=== PATIENT | female | born 1975 | race African-American/Black ===

== ENCOUNTER 2016-10-12 16:17 | Emergency (ER) | payer MEDICAID ==
--- NOTE | 2016-10-12 16:19 | ED Physician Chart ---
Chief Complaint/HPI - Patient Information Date Seen:: 10/12/16 Time Seen:: 16:19 Chief Complaint:: toe pain History of Present Illness:: 41-year-old female, otherwise healthy, complains of acute, constant, worse with weightbearing, nonradiating, aching, moderate, 6 out of 10 at worst, right great toe pain 2 days. Pain is located at the medial aspect of the distal toenail. Allergies:: Allergies Allergy/AdvReac Type Severity Reaction Status Date / Time MDX No Known Allergies - Nka Allergy Verified 02/20/15 18:28 [No Known Allergies - Nka] Historian:: Patient Review:: Nurse's Note Reviewed Review of Systems - Review of Systems Other: Complete system review otherwise unremarkable except as noted in HPI. Past Medical History - Past Medical History Past Medical History: No significant medical hx Family History: None Social History: Non Smoker, No Alcohol, No Drug Use, Lives With Parents Surgical History: None Psychiatricy History: None Medication: None Family Medical History - Family Member Mother History Unknown: Yes Ethnicity: Non- Living Status: Hx Family Hypertension: Yes Hx Family Diabetes: Yes Physical Exam - Physical Examination Other:: INITIAL VITAL SIGNS: Reviewed by me GENERAL: Alert and interactive. No acute distress HEAD: Head is normocephalic and atraumatic EYES: EOMI. . No scleral icterus. No conjunctival injection ENT: Moist mucous membranes. NECK: Supple. No masses. Full range of motion RESPIRATORY: No tachypnea. Clear breath sounds bilaterally. No wheezing, rales, or rhonchi CV: Regular rate and rhythm. No murmurs, rubs, or gallops ABDOMEN: Soft, non-distended, non-tender. No guarding. No rebound. No masses. EXTREMITIES: Right great toe at the medial aspect of the toenail it is obviously ingrown. There is no surrounding erythema. There is pain to palpation. There is good neurovascular status of the distal right lower extremity. SKIN: Warm and dry. No obvious rashes. NEUROLOGIC: Alert and oriented. Face is symmetric. Speech is normal. Moves all extremities equally. Motor and sensory distally intact. ED Septic Shock - . Is Septic Shock (SBP<90, OR Lactate>4 mmol\L) present?: No Reassessment (Disposition) - Reassessment Reassessment:: Patient has early ingrown toenail the right first toe. No sign of infection. We have offered to remove the toenail however patient has declined the procedure. She would rather just take ibuprofen. 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 Recommend follow-up with podiatry and primary care within 1-2 days. Gave prescription for ibuprofen. Return to ER precautions were given. Patient understands and agrees the plan. Reassessment Condition:: Improved - Diagnosis Diagnosis:: Right ingrown toenail, first toe Right lower extremity first toe pain - Aftercare/Follow up Instructions Aftercare/Follow-Up Instructions:: Counseled pt regarding lab results/diagnosis & need follow up, Refer to Discharge Instructions Medication Prescribed:: Ibuprofen - Patient Disposition Discharge/Transfer:: Home Time:: 16:45 Condition at Disposition:: Improved ED Discharge Plan - Patient Disposition Admit/Discharge/Transfer: PT DISCHARGED HOME Condition at Disposition: Improved Instructions: Ingrown Toenail
== END 2016-10-12 16:45 | disposition home or self-care (01) ==
LOC: ER 16:17
DX: L60.0 Ingrowing nail (principal)

== ENCOUNTER 2016-10-24 13:28 | Emergency (ER) | payer MEDICAID ==
--- NOTE | 2016-10-24 13:56 | ED Physician Chart ---
Chief Complaint/HPI - Patient Information Date Seen:: 10/24/16 Time Seen:: 13:50 Chief Complaint:: Cough for one week. History of Present Illness:: Pt has had cough with yellow sputum production for about one week. Pt at times vomits when her cough is severe. No dyspnea or fever. Last BM at about 10 am today, normal in color but slightly loose. No lightheadeness. Allergies:: Allergies Allergy/AdvReac Type Severity Reaction Status Date / Time No Known Allergies Allergy Verified 10/12/16 16:27 Vitals:: see Nurse Note. Historian:: Patient Family MD/PCP:: Dr. Alvarenga. LMP:: 09/29/16 Review:: Nurse's Note Reviewed Review of Systems - Review of Systems General/Constitutional: No fever, No chills, No weight loss, No weakness, No diaphoresis, No edema, No loss of appetite Skin: No skin lesions, No rash, No bruising Head: No headache, No light-headedness Eyes: No loss of vision, No pain, No diplopia ENT: No earache, No nasal drainage, No sore throat, No tinnitus Neck: No neck pain, No swelling, No thyromegaly, No stiffness, No mass noted Cardio Vascular: No chest pain, No palpitations, No PND, No orthopnea, No edema Pulmonary: No SOB, Cough, Sputum (yellow), No wheezing GI: Nausea, Vomiting (with severe cough. Vomitus consists of gastric content. 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 Surgical History: (about 20 years ago.) Psychiatricy History: None Medication: Reviewed Family Medical History - Family Member Mother History Unknown: Yes Ethnicity: Non- Living Status: Hx Family Hypertension: Yes Hx Family Diabetes: Yes Labs/Radiology/EKG Results - Lab Results Results: Laboratory Tests 10/24/16 10/24/16 14:17 14:17 WBC 5.8 D RBC 4.69 Hgb 13.1 Hct 40.0 MCV 85.4 MCH 28.0 MCHC Differential 32.8 RDW 12.3 Plt Count 180 MPV 8.3 Neutrophils (Manual) 53 Lymphocytes 26 Monocytes 15 H Eosinophils 4 Basophils 2 Platelet Estimate ADEQUATE Platelet Morphology GIANT PLATELETS SEEN RBC Morph Micro Appear NORMAL Sodium 135 L Potassium 3.5 Chloride 100 Carbon Dioxide 28.2 Anion Gap 10.3 BUN 26 H Creatinine 1.7 H Est GFR ( Amer) 42.6 Est GFR (Non-Af Amer) 35.2 BUN/Creatinine Ratio 15.3 Glucose 97 Calcium 10.0 ED Septic Shock - . Is Septic Shock (SBP<90, OR Lactate>4 mmol\L) present?: No Reassessment (Disposition) - Reassessment Reassessment:: 1530 Pt has been repeatedly evaluated. Pt's cough has much subsided after HHN treatment with albuterol. Lab results just became available. Lab findings have been reviewed with pt. Pt requests to go [facility] now and does not want further observation/management in hospital. Aftercare instructions given. Reassessment Condition:: Improved - Diagnosis Diagnosis:: Acute bronchitis, stable. Chronic renal insufficiency, stable. HTN, stable. - Aftercare/Follow up Instructions Aftercare/Follow-Up Instructions:: Refer to Discharge Instructions Notes:: Continue present care. Clear liquid for today. F/U with PCP Dr. Alvarenga in one day for recheck with repeat lab study: BMP. Return to ER immediately if condition worsens or if any further questions/ problems. Medication Prescribed:: Zithromax 250 mg tab 2 tabs po for one dose today, then one tab po daily Day 2 to 5. D-6 R-0 Albuterol inhaler 2 puffs q6h prn for severe cough. D-one canister R-0 - Patient Disposition Discharge/Transfer:: Home Time:: 15:35 Condition at Disposition:: Stable, Improved
[2016-10-24] MEDS ORDERED: Albuterol Nebulizer 2.5mg/3mL HHN ONE ×2 (14:02→14:11)
[2016-10-24 14:34] LABS: HEMOGLOBIN 13.1 gm/dL (11.7-15.5); MEAN CELL VOLUME 85.4 fl (81-100); MEAN CORPUSCULAR HGB CONC 32.8 pg (28.0-36.0); MEAN PLATELET VOLUME 8.3 fl; PLATELET COUNT 180 Th/cmm (150-400); RED BLOOD COUNT 4.69 Mil/cmm (3.80-5.10); RED CELL DISTRIBUTION WIDTH 12.3 % (11.5-20.0)
[2016-10-24 14:37] LABS: WHITE BLOOD COUNT 5.8 Th/cmm (4.8-10.8)
[2016-10-24 14:42] LABS: ANION GAP 10.3 (7.0-16.0); BUN/CREATININE RATIO 15.3; CARBON DIOXIDE 28.2 mEq/L (21.0-31.0); CREATININE - SERUM 1.7 mg/dL (0.6-1.2); POTASSIUM SERUM 3.5 mEq/L (3.5-5.1)
[2016-10-24 15:04] LABS: BASOPHIL 2 % (0-3); EOSINOPHIL 4 % (0-5); NEUTROPHILS 53 % (40-80); PLATELET ESTIMATE ADEQUATE (NORMAL); PLATELET MORPHOLOGY GIANT PLATELETS SEEN (NORMAL); TOTAL CELLS COUNTED 100
== END 2016-10-24 15:50 | disposition home or self-care (01) ==
LOC: ER 13:28
DX: J20.9 Acute bronchitis, unspecified (principal); I12.9 Hypertensive chronic kidney disease with stage 1 through stage 4 chronic kidney disease, or unspecified chronic kidney disease; N18.9 Chronic kidney disease, unspecified
CPT/HCPCS: 99284; 96374; 94640; 36415; 85007; 85027; 80048; J2405; J7613; Z7502

== ENCOUNTER 2017-07-26 11:43 | Emergency (ER) | payer MEDICAID ==
--- NOTE | 2017-07-26 12:10 | ED Physician Chart ---
ED Chief Complaint/HPI - Patient Information Date Seen:: 07/26/17 Time Seen:: 11:55 Chief Complaint:: Sore Throat History of Present Illness:: onset x one day of S/T, fever, cough, dizziness, and congestion; pt denies trauma, H/As, neck pain, C/P, SOB, Abd. 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 Allergies:: Allergies Allergy/AdvReac Type Severity Reaction Status Date / Time No Known Allergies Allergy Verified 10/24/16 14:07 Vitals:: Vital Signs - 8 hr 07/26/17 11:53 Temp 99.4 F HR 68 RR 17 BP 106/62 O2 Sat % 98 Historian:: Patient Review:: Nurse's Note Reviewed ED Review of Systems - Review of Systems General/Constitutional: No fever, No chills, No weight loss, No weakness, No diaphoresis, No edema, No loss of appetite Skin: No skin lesions, No rash, No bruising Head: No headache, No light-headedness Eyes: No loss of vision, No pain, No diplopia ENT: No earache, Nasal drainage, Sore throat, No tinnitus Neck: No neck pain, No swelling, No thyromegaly, No stiffness, No mass noted Cardio Vascular: No chest pain, No palpitations, No PND, No orthopnea, No edema Pulmonary: No SOB, Cough, No sputum, No wheezing GI: No nausea, No vomiting, No diarrhea, No pain, No melena, No hematochezia, No constipation, No hematemesis G/U: No dysuria, No frequency, No hematuria, No nacturia [employer]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, No abnormal vaginal bleed, No contraction Musculoskeletal: No bone or joint pain, No back pain, No muscle pain Endocrine: No polyuria, No polydipsia Psychiatric: Prior psych history, Depression, No anxiety, No suicidal ideation, No homicidal ideation, No auditory hallucination, No visual hallucination Hematopoietic: No bruising, No lymphadenopathy Allergic/Immuno: No urticaria, No angioedema Neurological: No syncope, No focal symptoms, No weakness, No paresthesia, No headache, No seizure, Dizziness, No confusion, No vertigo ED Past Medical History - Past Medical History Obtainable: Yes Past Medical History: HTN Family History: HTN Social History: Non Smoker, No Alcohol, No Drug Use, Single, Employed Surgical History: None Psychiatricy History: Depression Medication: Reviewed Family Medical History - Family Member Mother History Unknown: Yes Ethnicity: Non- Living Status: Hx Family Hypertension: Yes Hx Family Diabetes: Yes Uncle History Unknown: Yes Hx Family Cancer: No Hx Family Coronary Artery Disease: No Hx Family Congestive Heart Failure: No Hx Family Hypertension: Yes Hx Family Stroke: No Hx Family Diabetes: Yes Hx Family Seizures: No Hx Family Dementia: No Hx Family AIDS: No Hx Family HIV: No Hx Family COPD: No Hx Family Hepatitis: No Hx Family Psychiatric Problems: No Hx Family Tuberculosis: No ED Physical Exam - Physical Examination General/Constitutional: Awake, Well-developed, well-nourished, Alert, No distress, GCS 15, Non-toxic appearing, Ambulatory Head: Atraumatic Eyes: Lids, conjuctiva normal, PERRL, EOMI Skin: Nl inspection, No rash, No skin lesions, No ecchymosis, Well hydrated, No lymphadenopathy ENMT: External ears, nose nl, TM canals nl, Nasal exam nl, Lips, teeth, gums nl , Tonsils nl Other ENMT comments:: Pharynx: Injected; no exudates; no abscesses; no FBs; no airway obstruction; + Nasal Congestion Neck: Nontender, Full ROM w/o pain, No JVD, No nuchal rigidity, No bruit, No mass, No stridor Other Neck comments:: Supple; no meningeal signs; no cervical tenderness; no bruits Respiratory: Nl effort/Exclusion, Clear to Auscultation, No Wheeze/Rhonchi/Rales Cardio Vascular: RRR, No murmur, gallop, rubs, NL S1 S2, Carotid/Femoral/Distal pulses equal bilaterally GI: No tenderness/rebounding/guarding, No organomegaly, No hernia, Normal BS's, Nondistended, No mass/bruits, No McBurney tenderness : No CVA tenderness Extremities: No tenderness or effusion, Full ROM, normal strength in all extremities, No edema, Normal digits & nails Neuro/Psych: Alert/oriented, DTR's symmetric, Normal sensory exam, Normal motor strength, Judgement/insight normal, Mood normal, Normal gait, No focal deficits Misc: Normal back, No paraspinal tenderness ED Septic Shock - . Is Septic Shock (SBP<90, OR Lactate>4 mmol\L) present?: No - <6hrs of presentation: Vital Signs: Vital Signs - 8 hr 07/26/17 11:53 Temp 99.4 F HR 68 RR 17 BP 106/62 O2 Sat % 98 ED Reassessment (Disposition) - Reassessment Reassessment:: pt tolerated po fluids well in ER; pt is asymptomatic upon discharge Reassessment Condition:: Improved - Diagnosis Diagnosis:: Dx: Sore Throat; Pharyngitis; Cough; Congestion; Sinusitis; Bronchitis; Dizziness; Labyrinthritis; Benign Vertigo; Fever; URI - Aftercare/Follow up Instructions Aftercare/Follow-Up Instructions:: Counseled pt regarding lab results/diagnosis & need follow up, Refer to Discharge Instructions, Counseled pt & family regarding lab results/diagnosis & need follow up Medication Prescribed:: Rx: Amoxicillin 500mg po tid x 10 days; Salt Water Gargles; Cool Mist Vaporizer ; Tylenol 500mg po qid prn fever; take medications as prescibed; Have Blood Pressure re-checked in one day; HTN Care Instructions - Patient Disposition Discharge/Transfer:: Home Condition at Disposition:: Stable, Improved (RTER prn if existing s/s reoccur and/or get worse and/or any other new s/s occur; ACIs given for all above Dx; Refer to ENT Specialist/Neurologist/Psychiatrist/Supervisor [employer] SHIREEN; F/U with PMD in one day or prn; RTER prn if concerned) ED Discharge Plan - Patient Disposition Prescriptions: Amoxicillin [Amoxicillin*] 500 mg PO TID #30 tab
== END 2017-07-26 12:16 ==
LOC: ER 11:43
DX: J02.9 Acute pharyngitis, unspecified (principal); J06.9 Acute upper respiratory infection, unspecified; J32.9 Chronic sinusitis, unspecified; J20.9 Acute bronchitis, unspecified; R42 Dizziness and giddiness; H81.10 Benign paroxysmal vertigo, unspecified ear; H83.09 Labyrinthitis, unspecified ear; I10 Essential (primary) hypertension
CPT/HCPCS: Z7502

== ENCOUNTER 2017-09-15 13:37 | Emergency (ER) | payer MEDICAID ==
--- NOTE | 2017-09-15 14:33 | ED Physician Chart ---
ED Chief Complaint/HPI - Patient Information Date Seen:: 09/15/17 Time Seen:: 14:15 Chief Complaint:: sore throat and cough History of Present Illness:: Patient's had a sore throat and cough last 2-3 weeks increase the last 5 days. She did not take her temperature. No vomiting or diarrhea. Patient did not receive influenza vaccination this season. Allergies:: Allergies Allergy/AdvReac Type Severity Reaction Status Date / Time No Known Allergies Allergy Verified 09/15/17 14:24 Vitals:: Vital Signs - 8 hr 09/15/17 14:20 Temp 99.2 F HR 64 RR 16 BP 169/72 O2 Sat % 96 Historian:: Patient Review:: Nurse's Note Reviewed ED Review of Systems - Review of Systems General/Constitutional: No weight loss, No diaphoresis Skin: No skin lesions Head: No headache Eyes: No loss of vision ENT: No earache, Sore throat Neck: No neck pain Cardio Vascular: No chest pain Pulmonary: Cough GI: No nausea, No vomiting, No diarrhea G/U: No dysuria Endocrine: No polyuria, No polydipsia Psychiatric: No prior psych history Hematopoietic: No bruising Allergic/Immuno: No urticaria Neurological: No syncope, No focal symptoms ED Past Medical History - Past Medical History Past Medical History: No significant medical hx Family History: None Social History: Non Smoker, No Alcohol Surgical History: other (heart valve surgery shortly after ) Psychiatricy History: None Family Medical History - Family Member Mother History Unknown: Yes Ethnicity: Non- Living Status: Hx Family Hypertension: Yes Hx Family Diabetes: Yes Uncle History Unknown: Yes Hx Family Cancer: No Hx Family Coronary Artery Disease: No Hx Family Congestive Heart Failure: No Hx Family Hypertension: Yes Hx Family Stroke: No Hx Family Diabetes: Yes Hx Family Seizures: No Hx Family Dementia: No Hx Family AIDS: No Hx Family HIV: No Hx Family COPD: No Hx Family Hepatitis: No Hx Family Psychiatric Problems: No Hx Family Tuberculosis: No ED Physical Exam - Physical Examination General/Constitutional: Well-developed, well-nourished, Alert, No distress Head: Atraumatic Eyes: Lids, conjuctiva normal, PERRL Skin: Nl inspection, No rash, No skin lesions, No ecchymosis ENMT: External ears, nose nl, TM canals nl, Nasal exam nl, Lips, teeth, gums nl , Oropharynx nl, Tonsils nl Neck: No nuchal rigidity Respiratory: Nl effort/Exclusion, Clear to Auscultation Cardio Vascular: RRR Other Cardio Vascular comments:: 3/6 systolic murmur GI: No tenderness/rebounding/guarding : No CVA tenderness Extremities: Normal digits & nails Neuro/Psych: Alert/oriented Misc: Normal back ED Septic Shock - . Is Septic Shock (SBP<90, OR Lactate>4 mmol\L) present?: No - <6hrs of presentation: Vital Signs: Vital Signs - 8 hr 09/15/17 14:20 Temp 99.2 F HR 64 RR 16 BP 169/72 O2 Sat % 96 ED Reassessment (Disposition) - Reassessment Reassessment Condition:: Unchanged - Diagnosis Diagnosis:: Viral syndrome; bronchitis - Aftercare/Follow up Instructions Aftercare/Follow-Up Instructions:: Refer to Discharge Instructions Medication Prescribed:: Z-Jona to take per directions - Patient Disposition Discharge/Transfer:: Home Condition at Disposition:: Stable
== END 2017-09-15 14:40 | disposition home or self-care (01) ==
LOC: ER 13:37
DX: B34.9 Viral infection, unspecified (principal); J20.8 Acute bronchitis due to other specified organisms
CPT/HCPCS: Z7502

== ENCOUNTER 2017-10-03 13:51 | Emergency (ER) | payer MEDICAID ==
[2017-10-03 17:21] LABS: % EOSINOPHILS 0.7 % (0.0-5.0); % LYMPHOCYTES 17.6 % (20.0-50.0); % MONOCYTES 8.5 % (2.0-10.0); % NEUTROPHILS 73.2 % (40.0-80.0); EOSINOPHILE ABSOLUTE 0.1 Th/cmm (0.1-0.4); HEMOGLOBIN 11.8 gm/dL (12-16); LYMPHOCYTE ABSOLUTE 1.6 Th/cmm (1.5-3.0); MEAN CELL VOLUME 85.5 fl (81-100); MEAN CORPUSCULAR HEMOGLOBIN 28.9 pg (27.0-31.0); MEAN CORPUSCULAR HGB CONC 33.8 pg (28.0-36.0); MEAN PLATELET VOLUME 8.2 fl; MONOCYTE ABSOLUTE 0.8 Th/cmm (0.3-1.0); NEUTROPHILE ABSOLUTE 6.5 Th/cmm (1.8-8.0); PLATELET COUNT 175 Th/cmm (150-400); RED BLOOD COUNT 4.09 Mil/cmm (3.80-5.10)
[2017-10-03 17:50] LABS: ALB/GLOB RATIO 1.2 (1.0-1.8); ALBUMIN 4.1 gm/dL (3.7-5.3); ANION GAP 10.5 (7.0-16.0); BILIRUBIN,TOTAL 0.5 mg/dL (0.3-1.0); CALCIUM SERUM 9.6 mg/dL (8.6-10.3); CARBON DIOXIDE 29.1 mEq/L (21.0-31.0); CREATININE - SERUM 1.4 mg/dL (0.6-1.2); GFR NON AFRICAN-AMERICAN 43.8 ml/min; POTASSIUM SERUM 3.6 mEq/L (3.5-5.1); TOTAL PROTEIN,SERUM 7.5 gm/dL (6.0-8.3)
--- NOTE | 2017-10-03 18:42 | Transfer Summary ---
DATE OF TRANSFER: HISTORY: I just got the lab results on the patient at the bed 5. She came with pain in the right great toe. Clinical diagnosis was an acute gout and we got the uric acid level, which is elevated to 10.2. I gave her Ultram. I gave her Protonix and gave her Solu-Medrol. Her pain is almost gone. I think she has gout and she should go home. She should be on Zyloprim 300 mg once a day and Indocin 20. Motrin she can take a 400 mg twice a day for 2 to 3 days and once the pain is ruled over, then she can stop taking Motrin, which is [id number]. FINAL DIAGNOSIS: Acute gouty arthritis, got better with the use of Ultram and Solu-Medrol. JOB# [id number]
--- NOTE | 2017-10-04 09:00 | Diagnostic Imaging Report ---
Exam: Right great toe. HISTORY: Arthritis Findings: Multiple views of right great toe reviewed the study demonstrates no evidence of fracture dislocation. Mild subcutaneous soft tissue swelling is noted in the proximal phalanx right great toe IMPRESSION: Normal examination right great toe.
== END 2017-10-03 19:00 | disposition home or self-care (01) ==
LOC: ER 13:51
DX: M10.9 Gout, unspecified (principal)
CPT/HCPCS: 99285; 96374; 96375; 73660; 83880; 36415; 86141; 85025; 80053; 84550; C9113; J2930

== ENCOUNTER 2017-12-12 14:53 | Emergency (ER) | payer MEDICAID ==
--- NOTE | 2017-12-12 15:13 | ED Physician Chart ---
ED Chief Complaint/HPI - Patient Information Date Seen:: 12/12/17 Time Seen:: 14:50 Chief Complaint:: Abdominal Pain History of Present Illness:: onset x one week of intermittent, diffuse, crampy abdominal pain, N/V/D x 10; S/ T, and fever; pt denies trauma, H/As, E/As, neck pain, cough, C/P, SOB, A/C, chills, or urinary s/s Allergies:: Allergies Allergy/AdvReac Type Severity Reaction Status Date / Time No Known Allergies Allergy Verified 09/15/17 14:24 Historian:: Patient Review:: Nurse's Note Reviewed <Abhishek Beauchamp - Last Filed: 12/12/17 19:48> - Patient Information Allergies:: Allergies Allergy/AdvReac Type Severity Reaction Status Date / Time No Known Allergies Allergy Verified 09/15/17 14:24 Vitals:: Vital Signs - 8 hr 12/12/17 15:22 Temp 99.7 F HR 69 RR 19 BP 145/64 O2 Sat % 97 <Tee Valle - Last Filed: 12/12/17 22:41> ED Review of Systems - Review of Systems General/Constitutional: Fever, No chills, No weight loss, No weakness, No diaphoresis, No edema, No loss of appetite Skin: No skin lesions, No rash, No bruising Head: No headache, No light-headedness Eyes: No loss of vision, No pain, No diplopia ENT: No earache, No nasal drainage, Sore throat, No tinnitus Neck: No neck pain, No swelling, No thyromegaly, No stiffness, No mass noted Cardio Vascular: No chest pain, No palpitations, No PND, No orthopnea, No edema Pulmonary: No SOB, Cough, No sputum, No wheezing GI: Nausea, Vomiting, Diarrhea, Pain, No melena, No hematochezia, No constipation, No hematemesis G/U: No dysuria, No frequency, No hematuria, No nacturia Phlebotomy Technician: No vaginal discharge, No abnormal vaginal bleed, No contraction Musculoskeletal: No bone or joint pain, No back pain, No muscle pain Endocrine: No polyuria, No polydipsia Psychiatric: Prior psych history, Depression, No anxiety, No suicidal ideation, No homicidal ideation, No auditory hallucination, No visual hallucination Hematopoietic: No bruising, No lymphadenopathy Allergic/Immuno: No urticaria, No angioedema Neurological: No syncope, No focal symptoms, No weakness, No paresthesia, No headache, No seizure, No dizziness, No confusion, No vertigo <Abhishek Beauchamp Filed: 12/12/17 19:48> ED Past Medical History - Past Medical History Obtainable: Yes Past Medical History: HTN Family History: HTN Social History: Non Smoker, No Alcohol, No Drug Use, Single Surgical History: None Psychiatricy History: Depression Medication: Reviewed <Abhishek Beauchamp Last Filed: 12/12/17 19:48> Family Medical History - Family Member Mother History Unknown: Yes Ethnicity: Non- Living Status: Hx Family Hypertension: Yes Hx Family Diabetes: Yes Uncle History Unknown: Yes Ethnicity: Hx Family Cancer: No Hx Family Coronary Artery Disease: No Hx Family Congestive Heart Failure: No Hx Family Hypertension: Yes Hx Family Stroke: No Hx Family Diabetes: Yes Hx Family Seizures: No Hx Family Dementia: No Hx Family AIDS: No Hx Family HIV: No Hx Family COPD: No Hx Family Hepatitis: No Hx Family Psychiatric Problems: No Hx Family Tuberculosis: No <Abhishek Beauchamp Filed: 12/12/17 19:48> ED Physical Exam - Physical Examination General/Constitutional: Awake, Well-developed, well-nourished, Alert, No distress, GCS 15, Non-toxic appearing, Ambulatory Head: Atraumatic Eyes: Lids, conjuctiva normal, PERRL, EOMI Skin: Nl inspection, No rash, No skin lesions, No ecchymosis, Well hydrated, No lymphadenopathy ENMT: External ears, nose nl, TM canals nl, Nasal exam nl, Lips, teeth, gums nl , Tonsils nl Other ENMT comments:: Pharynx: Injected Neck: Nontender, Full ROM w/o pain, No JVD, No nuchal rigidity, No bruit, No mass, No stridor Other Neck comments:: supple; no meningeal signs; no cervical tenderness Respiratory: Nl effort/Exclusion, Clear to Auscultation, No Wheeze/Rhonchi/Rales Cardio Vascular: RRR, No murmur, gallop, rubs, NL S1 S2, Carotid/Femoral/Distal pulses equal bilaterally GI: No tenderness/rebounding/guarding, No organomegaly, No hernia, Normal BS's, Nondistended, No mass/bruits, No McBurney tenderness, Rectum exam nl Other GI comments:: no pulsatile masses : No CVA tenderness Extremities: No tenderness or effusion, Full ROM, normal strength in all extremities, No edema, Normal digits & nails Neuro/Psych: Alert/oriented, DTR's symmetric, Normal sensory exam, Normal motor strength, Judgement/insight normal, Mood normal, Normal gait, No focal deficits Misc: Normal back, No paraspinal tenderness <Abhishek Beauchamp - Last Filed: 12/12/17 19:48> ED Labs/Radiology/EKG Results - Lab Results Comments:: Amylase: 109; K+: 3.4; BUN: 32; Cr: 1.3 <Abhishek Beauchamp - Last Filed: 12/12/17 19:48> - Lab Results Results: Laboratory Tests 12/12/17 12/12/17 12/12/17 15:30 15:30 15:30 WBC 7.8 RBC 4.24 Hgb 12.0 Hct 36.8 L MCV 86.8 MCH 28.3 MCHC Differential 32.6 RDW 12.8 Plt Count 216 MPV 8.0 Neutrophils % 67.8 Lymphocytes % 21.8 Monocytes % 7.9 Eosinophils % 2.5 Basophils % 0.0 PT INR PTT (Actin FS) Sodium 136 Potassium 3.4 L Chloride 100 Carbon Dioxide 26.7 Anion Gap 12.7 BUN 32 H Creatinine 1.3 H Est GFR ( Amer) 57.8 Est GFR (Non-Af Amer) 47.7 BUN/Creatinine Ratio 24.6 Glucose 94 Whole Bld Lactic Acid Calcium 9.6 Total Bilirubin 0.4 AST 18 ALT 13 Alkaline Phosphatase 82 Creatine Kinase 100 Troponin I B-Natriuretic Peptide 79.6 Total Protein 7.3 Albumin 3.8 Globulin 3.5 Albumin/Globulin Ratio 1.1 Triglycerides 140 Cholesterol 151 LDL Cholesterol Direct 88 HDL Cholesterol 40 Amylase 109 H Lipase 81 Serum , Qual Urine Source Urine Color Urine Clarity Urine pH Ur Specific [place] Urine Protein Urine Glucose (UA) Urine Ketones Urine Blood Urine Nitrate Urine Bilirubin Urine Urobilinogen Ur Leukocyte Esterase Urine RBC Urine WBC Ur Epithelial Cells Urine Bacteria 12/12/17 12/12/1712/12/18 15:30 15:30 15:30 WBC RBC Hgb Hct MCV MCH MCHC Differential RDW Plt Count MPV Neutrophils % Lymphocytes % Monocytes % Eosinophils % Basophils % PT 10.5 INR 1.01 PTT (Actin FS) 25.9 L Sodium Potassium Chloride Carbon Dioxide Anion Gap BUN Creatinine Est GFR ( Amer) Est GFR (Non-Af Amer) BUN/Creatinine Ratio Glucose Whole Bld Lactic Acid Calcium Total Bilirubin AST ALT Alkaline Phosphatase Creatine Kinase Troponin I 0.01 B-Natriuretic Peptide Total Protein Albumin Globulin Albumin/Globulin Ratio Triglycerides Cholesterol LDL Cholesterol Direct HDL Cholesterol Amylase Lipase Serum , Qual NEGATIVE Urine Source Urine Color Urine Clarity Urine pH Ur Specific [place] Urine Protein Urine Glucose (UA) Urine Ketones Urine Blood Urine Nitrate Urine Bilirubin Urine Urobilinogen Ur Leukocyte Esterase Urine RBC Urine WBC Ur Epithelial Cells Urine Bacteria 12/12/17 12/12/17 15:30 16:40 WBC RBC Hgb Hct MCV MCH MCHC Differential RDW Plt Count MPV Neutrophils % Lymphocytes % Monocytes % Eosinophils % Basophils % PT INR PTT (Actin FS) Sodium Potassium Chloride Carbon Dioxide Anion Gap BUN Creatinine Est GFR ( Amer) Est GFR (Non-Af Amer) BUN/Creatinine Ratio Glucose Whole Bld Lactic Acid 0.63 Calcium Total Bilirubin AST ALT Alkaline Phosphatase Creatine Kinase Troponin I B-Natriuretic Peptide Total Protein Albumin Globulin Albumin/Globulin Ratio Triglycerides Cholesterol LDL Cholesterol Direct HDL Cholesterol Amylase Lipase Serum , Qual Urine Source [place] Urine Color YELLOW Urine Clarity CLEAR Urine pH 5.5 Ur Specific [place] >= 1.030 Urine Protein NEGATIVE Urine Glucose (UA) NEGATIVE Urine Ketones NEGATIVE Urine Blood NEGATIVE Urine Nitrate NEGATIVE Urine Bilirubin NEGATIVE Urine Urobilinogen 0.2 Ur Leukocyte Esterase NEGATIVE Urine RBC 0-2 Urine WBC 0-2 Ur Epithelial Cells RARE Urine Bacteria NONE SEEN Comments:: Laboratory Results - last 24 hr 12/12/17 12/12/17 12/12/17 15:30 15:30 15:30 WBC 7.8 RBC 4.24 Hgb 12.0 Hct 36.8 L MCV 86.8 MCH 28.3 MCHC Differential 32.6 RDW 12.8 Plt Count 216 MPV 8.0 Neutrophils % 67.8 Lymphocytes % 21.8 Monocytes % 7.9 Eosinophils % 2.5 Basophils % 0.0 PT INR PTT (Actin FS) Sodium 136 Potassium 3.4 L Chloride 100 Carbon Dioxide 26.7 Anion Gap 12.7 BUN 32 H Creatinine 1.3 H Est GFR ( Amer) 57.8 Est GFR (Non-Af Amer) 47.7 BUN/Creatinine Ratio 24.6 Glucose 94 Whole Bld Lactic Acid Calcium 9.6 Total Bilirubin 0.4 AST 18 ALT 13 Alkaline Phosphatase 82 Creatine Kinase 100 Troponin I B-Natriuretic Peptide 79.6 Total Protein 7.3 Albumin 3.8 Globulin 3.5 Albumin/Globulin Ratio 1.1 Triglycerides 140 Cholesterol 151 LDL Cholesterol Direct 88 HDL Cholesterol 40 Amylase 109 H Lipase 81 Serum , Qual Urine Source Urine Color Urine Clarity Urine pH Ur Specific [place] Urine Protein Urine Glucose (UA) Urine Ketones Urine Blood Urine Nitrate Urine Bilirubin Urine Urobilinogen Ur Leukocyte Esterase Urine RBC Urine WBC Ur Epithelial Cells Urine Bacteria 12/12/17 12/12/17 12/12/17 15:30 15:30 15:30 WBC RBC Hgb Hct MCV MCH MCHC Differential RDW Plt Count MPV Neutrophils % Lymphocytes % Monocytes % Eosinophils % Basophils % PT 10.5 INR 1.01 PTT (Actin FS) 25.9 L Sodium Potassium Chloride Carbon Dioxide Anion Gap BUN Creatinine Est GFR ( Amer) Est GFR (Non-Af Amer) BUN/Creatinine Ratio Glucose Whole Bld Lactic Acid Calcium Total Bilirubin AST ALT Alkaline Phosphatase Creatine Kinase Troponin I 0.01 B-Natriuretic Peptide Total Protein Albumin Globulin Albumin/Globulin Ratio Triglycerides Cholesterol LDL Cholesterol Direct HDL Cholesterol Amylase Lipase Serum , Qual NEGATIVE Urine Source Urine Color Urine Clarity Urine pH Ur Specific [place] Urine Protein Urine Glucose (UA) Urine Ketones Urine Blood Urine Nitrate Urine Bilirubin Urine Urobilinogen Ur Leukocyte Esterase Urine RBC Urine WBC Ur Epithelial Cells Urine Bacteria 12/12/17 12/12/17 15:30 16:40 WBC RBC Hgb Hct MCV MCH MCHC Differential RDW Plt Count MPV Neutrophils % Lymphocytes % Monocytes % Eosinophils % Basophils % PT INR PTT (Actin FS) Sodium Potassium Chloride Carbon Dioxide Anion Gap BUN Creatinine Est GFR ( Amer) Est GFR (Non-Af Amer) BUN/Creatinine Ratio Glucose Whole Bld Lactic Acid 0.63 Calcium Total Bilirubin AST ALT Alkaline Phosphatase Creatine Kinase Troponin I B-Natriuretic Peptide Total Protein Albumin Globulin Albumin/Globulin Ratio Triglycerides Cholesterol LDL Cholesterol Direct HDL Cholesterol Amylase Lipase Serum , Qual Urine Source [place] Urine Color YELLOW Urine Clarity CLEAR Urine pH 5.5 Ur Specific [place] >= 1.030 Urine Protein NEGATIVE Urine Glucose (UA) NEGATIVE Urine Ketones NEGATIVE Urine Blood NEGATIVE Urine Nitrate NEGATIVE Urine Bilirubin NEGATIVE Urine Urobilinogen 0.2 Ur Leukocyte Esterase NEGATIVE Urine RBC 0-2 Urine WBC 0-2 Ur Epithelial Cells RARE Urine Bacteria NONE SEEN <Tee Valle - Last Filed: 12/12/17 22:41> ED Assessment - Assessment General Assessment: This afternoon patient developed upper abdominal pain should objective fever and had 4 times diarrhea. No vomiting. Patient has no chronic medical problems. No prior surgery. Patient's well-developed well-nourished no acute distress. Chest clear. Heart RR no murmur or extra sound. Abdomen bowel sounds present abdomen is soft, nontender, no organomegaly. At 2235 patient denied abdominal pain. Abdomen was soft and nontender. The diagnosis is viral enteritis with diarrhea. <Tee Valle - Last Filed: 12/12/17 22:41> ED Septic Shock - . Is Septic Shock (SBP<90, OR Lactate>4 mmol\L) present?: No <Abhishek Beauchamp - Last Filed: 12/12/17 19:48> - <6hrs of presentation: Vital Signs: Vital Signs - 8 hr 12/12/17 15:22 Temp 99.7 F HR 69 RR 19 BP 145/64 O2 Sat % 97 <Tee Valle - Last Filed: 12/12/17 22:41> ED Reassessment (Disposition) - Reassessment Reassessment Condition:: Improved - Diagnosis Diagnosis:: Dx: Fever; Pharyngitis; N/V/D; Abdominal Pain; Hypokalemia; Dehydration; Pancreatitis <Abhishek Beauchamp - Last Filed: 12/12/17 19:48> - Reassessment Reassessment Condition:: Improved - Aftercare/Follow up Instructions Aftercare/Follow-Up Instructions:: Refer to Discharge Instructions - Patient Disposition Discharge/Transfer:: Home Condition at Disposition:: Stable, Improved <Tee Valle - Last Filed: 12/12/17 22:41>
[2017-12-12] MEDS ORDERED: Sodium Chloride 0.9% 1,000 ML IV ONE (15:15)
[2017-12-12] MEDS ORDERED: cefTRIAXone 1 GM in Sodium Chloride 0.9% 50 ML IV ONE (15:17)
[2017-12-12 15:45] LABS: % EOSINOPHILS 2.5 % (0.0-5.0); % LYMPHOCYTES 21.8 % (20.0-50.0); % MONOCYTES 7.9 % (2.0-10.0); % NEUTROPHILS 67.8 % (40.0-80.0); EOSINOPHILE ABSOLUTE 0.2 Th/cmm (0.1-0.4); HEMATOCRIT 36.8 % (41.0-60); LYMPHOCYTE ABSOLUTE 1.7 Th/cmm (1.5-3.0); MEAN CELL VOLUME 86.8 fl (81-100); MEAN CORPUSCULAR HEMOGLOBIN 28.3 pg (27.0-31.0); MEAN CORPUSCULAR HGB CONC 32.6 pg (28.0-36.0); MONOCYTE ABSOLUTE 0.6 Th/cmm (0.3-1.0); NEUTROPHILE ABSOLUTE 5.3 Th/cmm (1.8-8.0); PLATELET COUNT 216 Th/cmm (150-400); RED BLOOD COUNT 4.24 Mil/cmm (3.80-5.10); RED CELL DISTRIBUTION WIDTH 12.8 % (11.5-20.0); WHITE BLOOD COUNT 7.8 Th/cmm (4.8-10.8)
[2017-12-12 15:56] LABS: INR 1.01 (0.5-1.4); PROTHROMBIN TIME (TEST) 10.5 SECONDS (9.5-11.5)
[2017-12-12 16:00] LABS: ALB/GLOB RATIO 1.1 (1.0-1.8); ALBUMIN 3.8 gm/dL (3.7-5.3); ANION GAP 12.7 (7.0-16.0); BILIRUBIN,TOTAL 0.4 mg/dL (0.3-1.0); CALCIUM SERUM 9.6 mg/dL (8.6-10.3); CARBON DIOXIDE 26.7 mEq/L (21.0-31.0); CREATININE - SERUM 1.3 mg/dL (0.6-1.2); GFR AFRICAN-AMERICAN 57.8 ml/min (>90); GFR NON AFRICAN-AMERICAN 47.7 ml/min; POTASSIUM SERUM 3.4 mEq/L (3.5-5.1); TOTAL PROTEIN,SERUM 7.3 gm/dL (6.0-8.3)
[2017-12-12] MEDS ORDERED: Potassium Chloride 20 mEq ER Tab PO ONE ×2 (17:04→19:44)
[2017-12-12 17:05] LABS: URINE MICROSCOPIC INDICATED? YES; URINE SOURCE MIDSTREAM
[2017-12-12 17:06] LABS: URINE BILIRUBIN NEGATIVE (NEGATIVE); URINE BLOOD NEGATIVE (NEGATIVE); URINE GLUCOSE (UA) NEGATIVE (NEGATIVE); URINE KETONE NEGATIVE (NEGATIVE); URINE LEUKOCYTE ESTERASE NEGATIVE (NEGATIVE); URINE NITRATE NEGATIVE (NEGATIVE); URINE PH 5.5 (4.6 - 8.0); URINE PROTEIN NEGATIVE (NEGATIVE); URINE UROBILINOGEN 0.2 E.U./dL (0.2 - 1.0)
[2017-12-12 17:12] LABS: URINE CLARITY CLEAR (CLEAR); URINE COLOR YELLOW
[2017-12-12 17:13] LABS: URINE BACTERIA NONE SEEN /hpf (NONE SEEN); URINE EPITHELIAL CELLS RARE /lpf (FEW); URINE RBC 0-2 /hpf (0-5); URINE WBC 0-2 /hpf (0-5)
[2017-12-12] MEDS ORDERED: Maalox 30 mL Cup PO ONE (20:22)
[2017-12-12] MEDS ORDERED: Maalox 30 mL Cup ONE (20:49)
== END 2017-12-12 23:15 | disposition home or self-care (01) ==
LOC: ER 14:53
DX: J02.9 Acute pharyngitis, unspecified (principal); E86.0 Dehydration; E87.6 Hypokalemia; K85.90 Acute pancreatitis without necrosis or infection, unspecified; I10 Essential (primary) hypertension
CPT/HCPCS: 36415-UA; 80053-TC; 80061-TC; 81001-TC; 82150-TC; 82550-TC; 83605; 83690-TC; 83880-TC; 84484-TC; 84703-TC; 85025-TC; 85610-TC; 85730-TC; 93005; 94760; J7030; Z7502

== ENCOUNTER 2018-02-17 12:43 | Emergency (ER) | payer MEDICAID ==
--- NOTE | 2018-02-17 15:05 | ED Physician Chart ---
ED Chief Complaint/HPI - Patient Information Date Seen:: 02/17/18 Time Seen:: 12:45 Chief Complaint:: Right Great Toe Pain History of Present Illness:: onset x 2 days of dull, MS type RGT pain after an accidental twisting type injury; pt denies paresthesias, weakness, dizziness, visual or gait changes, H/ As, neck pain, vertigo, C/P, SOB, Abd. Pain, A/N/V/D/C, fever, chills, or urinary s/s; pt's last tetanus shot: < 5 years; UTD Allergies:: Allergies Allergy/AdvReac Type Severity Reaction Status Date / Time No Known Allergies Allergy Verified 02/17/18 12:51 Vitals:: Vital Signs - 8 hr 02/17/18 12:45 Temp 97.8 F HR 63 RR 16 BP 116/75 O2 Sat % 97 Historian:: Patient Review:: Nurse's Note Reviewed ED Review of Systems - Review of Systems General/Constitutional: No fever, No chills, No weight loss, No weakness, No diaphoresis, No edema, No loss of appetite Skin: No skin lesions, No rash, No bruising Head: No headache, No light-headedness Eyes: No loss of vision, No pain, No diplopia ENT: No earache, No nasal drainage, No sore throat, No tinnitus Neck: No neck pain, No swelling, No thyromegaly, No stiffness, No mass noted Cardio Vascular: No chest pain, No palpitations, No PND, No orthopnea, No edema Pulmonary: No SOB, No cough, No sputum, No wheezing GI: No nausea, No vomiting, No diarrhea, No pain, No melena, No hematochezia, No constipation, No hematemesis G/U: No dysuria, No frequency, No hematuria, No nacturia Java Core Developer: No vaginal discharge, No abnormal vaginal bleed, No contraction Musculoskeletal: Bone or joint pain, No back pain, Muscle pain Endocrine: No polyuria, No polydipsia Psychiatric: Prior psych history, Depression, No anxiety, No suicidal ideation, No homicidal ideation, No auditory hallucination, No visual hallucination Hematopoietic: No bruising, No lymphadenopathy Allergic/Immuno: No urticaria, No angioedema Neurological: No syncope, No focal symptoms, No weakness, No paresthesia, No headache, No seizure, No dizziness, No confusion, No vertigo ED Past Medical History - Past Medical History Obtainable: Yes Past Medical History: HTN Family History: HTN Social History: Non Smoker, No Alcohol, No Drug Use, Surgical History: None Psychiatricy History: Depression Medication: Reviewed Family Medical History - Family Member Mother History Unknown: Yes Ethnicity: Non- Living Status: Hx Family Hypertension: Yes Hx Family Diabetes: Yes Uncle History Unknown: Yes Ethnicity: Hx Family Cancer: No Hx Family Coronary Artery Disease: No Hx Family Congestive Heart Failure: No Hx Family Hypertension: Yes Hx Family Stroke: No Hx Family Diabetes: Yes Hx Family Seizures: No Hx Family Dementia: No Hx Family AIDS: No Hx Family HIV: No Hx Family COPD: No Hx Family Hepatitis: No Hx Family Psychiatric Problems: No Hx Family Tuberculosis: No ED Physical Exam - Physical Examination General/Constitutional: Awake, Well-developed, well-nourished, Alert, No distress, GCS 15, Non-toxic appearing, Ambulatory Head: Atraumatic Eyes: Lids, conjuctiva normal, PERRL, EOMI Skin: Nl inspection, No rash, No skin lesions, No ecchymosis, Well hydrated, No lymphadenopathy ENMT: External ears, nose nl, TM canals nl, Nasal exam nl, Lips, teeth, gums nl , Oropharynx nl, Tonsils nl Neck: Nontender, Full ROM w/o pain, No JVD, No nuchal rigidity, No bruit, No mass, No stridor Other Neck comments:: supple; no meningeal signs; no cervical tenderness; Respiratory: Nl effort/Exclusion, Clear to Auscultation, No Wheeze/Rhonchi/Rales Cardio Vascular: RRR, No murmur, gallop, rubs, NL S1 S2, Carotid/Femoral/Distal pulses equal bilaterally GI: No tenderness/rebounding/guarding, No organomegaly, No hernia, Normal BS's, Nondistended, No mass/bruits, No McBurney tenderness Other GI comments:: no pulsatile masses : No CVA tenderness Extremities: No tenderness or effusion, Full ROM, normal strength in all extremities, No edema, Normal digits & nails Other Extremities comments:: RGT: mild tenderness upon PROMs; no loss of ROMs; no ligament instability; no cellulitis; no PWs; Gait: WNL; good motor, tendon, and sensory functions; good NV functions Neuro/Psych: Alert/oriented, DTR's symmetric, Normal sensory exam, Normal motor strength, Judgement/insight normal, Mood normal, Normal gait, No focal deficits Other Neuro/Psych comments:: no focal signs; MSE: WNL; no SIs Misc: Normal back, No paraspinal tenderness ED Labs/Radiology/EKG Results - Lab Results Results: Laboratory Tests 02/17/18 12:57 Urine Test NEGATIVE Comments:: UCG: Negative - Radiology Results Comments:: X-Rays: deferred by pt ED Assessment - Procedures Procedures:: Leonardo Splint RGT to Right 2nd Toe; Orthopedic Cast Boot Shoe to Right Foot Informed Consent: Procedure/risk/benefits explained by MD: Yes (no complications ) ED Septic Shock - . Is Septic Shock (SBP<90, OR Lactate>4 mmol\L) present?: No - <6hrs of presentation: Vital Signs: Vital Signs - 8 hr 02/17/18 12:45 Temp 97.8 F HR 63 RR 16 BP 116/75 O2 Sat % 97 ED Reassessment (Disposition) - Reassessment Reassessment:: pt is asymptomatic upon discharge Reassessment Condition:: Improved - Diagnosis Diagnosis:: Right Great Toe Pain; Right Great Toe Sprain and Strain; RGT Injury - Aftercare/Follow up Instructions Aftercare/Follow-Up Instructions:: Counseled pt regarding lab results/diagnosis & need follow up, Refer to Discharge Instructions, Counseled pt & family regarding lab results/diagnosis & need follow up - Patient Disposition Discharge/Transfer:: Home Condition at Disposition:: Stable, Improved (RTER prn if existing s/s reoccur and/or get worse and/or any other new s/s occur; ACIs given for all above Dx; Refer to Orthopedist/Architectural Technician/Psychiatrist/Project Reservoir Engineer SHIREEN; F/U with PMD in one day or prn; RTER prn if concerned) ED Discharge Plan - Patient Disposition Admit/Discharge/Transfer: PT DISCHARGED HOME Condition at Disposition: Stable Instructions: Foot Sprain, Sprain, [id number]
== END 2018-02-17 14:33 | disposition home or self-care (01) ==
LOC: ER 12:43
DX: S93.501A Unspecified sprain of right great toe, initial encounter (principal); S96.911A Strain of unspecified muscle and tendon at ankle and foot level, right foot, initial encounter; I10 Essential (primary) hypertension; X50.1XXA Overexertion from prolonged static or awkward postures, initial encounter; Y93.89 Activity, other specified; Y92.89 Other specified places as the place of occurrence of the external cause; Y99.8 Other external cause status
CPT/HCPCS: 81025-TC; Z7502

== ENCOUNTER 2018-03-06 15:21 | Emergency (ER) | payer MEDICAID ==
--- NOTE | 2018-03-06 15:58 | ED Physician Chart ---
ED Chief Complaint/HPI - Patient Information Date Seen:: 03/06/18 Time Seen:: 15:40 Chief Complaint:: Insomnia History of Present Illness:: onset x 3 days of insomnia, visual hallucinations, and depression; pt denies trauma, SIs, H/As, S/T, neck pain, C/P, SOB, Abd. Pain, A/N/V/D/C, fever, chills , or urinary s/s Allergies:: Allergies Allergy/AdvReac Type Severity Reaction Status Date / Time cat dander Allergy Verified 03/06/18 15:42 grass pollen Allergy Verified 03/06/18 15:42 Historian:: Patient, Family Member Review:: Nurse's Note Reviewed ED Review of Systems - Review of Systems General/Constitutional: No fever, No chills, No weight loss, No weakness, No diaphoresis, No edema, No loss of appetite Skin: No skin lesions, No rash, No bruising Head: No headache, No light-headedness Eyes: No loss of vision, No pain, No diplopia ENT: No earache, No nasal drainage, No sore throat, No tinnitus Neck: No neck pain, No swelling, No thyromegaly, No stiffness, No mass noted Cardio Vascular: No chest pain, No palpitations, No PND, No orthopnea, No edema Pulmonary: No SOB, No cough, No sputum, No wheezing GI: No nausea, No vomiting, No diarrhea, No pain, No melena, No hematochezia, No constipation, No hematemesis G/U: No dysuria, No frequency, No hematuria, No nacturia Wound Care Center Consultant: No vaginal discharge, No abnormal vaginal bleed, No contraction Musculoskeletal: No bone or joint pain, No back pain, No muscle pain Endocrine: No polyuria, No polydipsia Psychiatric: Prior psych history, Depression, Anxiety, No anxiety, No suicidal ideation, No homicidal ideation, Auditory hallucination, Visual hallucination Hematopoietic: No bruising, No lymphadenopathy Allergic/Immuno: No urticaria, No angioedema Neurological: No syncope, No focal symptoms, No weakness, No paresthesia, No headache, No seizure, No dizziness, No confusion, No vertigo ED Past Medical History - Past Medical History Obtainable: Yes Past Medical History: HTN, Other (Congenital Heart Disease) Family History: HTN Social History: Non Smoker, No Alcohol, No Drug Use, Surgical History: other (Congenital Heart Surgery) Psychiatricy History: Depression, Schizophrenia, Bipolar Medication: Reviewed Family Medical History - Family Member Mother History Unknown: Yes Ethnicity: Non- Living Status: Hx Family Hypertension: Yes Hx Family Diabetes: Yes Uncle History Unknown: Yes Ethnicity: Hx Family Cancer: No Hx Family Coronary Artery Disease: No Hx Family Congestive Heart Failure: No Hx Family Hypertension: Yes Hx Family Stroke: No Hx Family Diabetes: Yes Hx Family Seizures: No Hx Family Dementia: No Hx Family AIDS: No Hx Family HIV: No Hx Family COPD: No Hx Family Hepatitis: No Hx Family Psychiatric Problems: No Hx Family Tuberculosis: No ED Physical Exam - Physical Examination General/Constitutional: Awake, Well-developed, well-nourished, Alert, No distress, GCS 15, Non-toxic appearing, Ambulatory Head: Atraumatic Eyes: Lids, conjuctiva normal, PERRL, EOMI Skin: Nl inspection, No rash, No skin lesions, No ecchymosis, Well hydrated, No lymphadenopathy ENMT: External ears, nose nl, TM canals nl, Nasal exam nl, Lips, teeth, gums nl , Oropharynx nl, Tonsils nl Neck: Nontender, Full ROM w/o pain, No JVD, No nuchal rigidity, No bruit, No mass, No stridor Respiratory: Nl effort/Exclusion, Clear to Auscultation, No Wheeze/Rhonchi/Rales Cardio Vascular: RRR, No murmur, gallop, rubs, NL S1 S2, Carotid/Femoral/Distal pulses equal bilaterally GI: No tenderness/rebounding/guarding, No organomegaly, No hernia, Normal BS's, Nondistended, No mass/bruits, No McBurney tenderness, Rectum exam nl : No CVA tenderness Extremities: No tenderness or effusion, Full ROM, normal strength in all extremities, No edema, Normal digits & nails Neuro/Psych: Alert/oriented, DTR's symmetric, Normal sensory exam, Normal motor strength, Judgement/insight normal, Mood normal, Normal gait, No focal deficits Other Neuro/Psych comments:: + Hallucinations; no SIs; Mood/Affect: Blunt Misc: Normal back, No paraspinal tenderness ED Labs/Radiology/EKG Results - Lab Results Comments:: Elevated LFTs; otherwise unremarkable - EKG Interpretations EKG Time:: 15:58 Rate & Rhythm: 81; NSR Comments:: non-specific st-t changes ED Septic Shock - . Is Septic Shock (SBP<90, OR Lactate>4 mmol\L) present?: No ED Reassessment (Disposition) - Reassessment Reassessment Condition:: Improved - Diagnosis Diagnosis:: Psychosis; Insomnia; Depression; Bipolar Disorder; Medical Clearance; Schizophrenia
[2018-03-06 16:25] LABS: % BASOPHILS 0.8 % (0.0-2.0); % EOSINOPHILS 0.2 % (0.0-5.0); % LYMPHOCYTES 12.8 % (20.0-50.0); % MONOCYTES 3.1 % (2.0-10.0); % NEUTROPHILS 83.1 % (40.0-80.0); BASOPHILE ABSOLUTE 0.1 Th/cumm (0-0.2); HEMATOCRIT 34.4 % (41.0-60); HEMOGLOBIN 11.5 gm/dL (12-16); LYMPHOCYTE ABSOLUTE 1.1 Th/cmm (1.5-3.0); MEAN CELL VOLUME 86.6 fl (81-100); MEAN CORPUSCULAR HEMOGLOBIN 28.9 pg (27.0-31.0); MEAN CORPUSCULAR HGB CONC 33.4 pg (28.0-36.0); MEAN PLATELET VOLUME 8.2 fl; MONOCYTE ABSOLUTE 0.3 Th/cmm (0.3-1.0); NEUTROPHILE ABSOLUTE 6.8 Th/cmm (1.8-8.0); PLATELET COUNT 190 Th/cmm (150-400); RED BLOOD COUNT 3.98 Mil/cmm (3.80-5.10); RED CELL DISTRIBUTION WIDTH 14.4 % (11.5-20.0); WHITE BLOOD COUNT 8.3 Th/cmm (4.8-10.8)
[2018-03-06 16:44] LABS: ALB/GLOB RATIO 1.1 (1.0-1.8); ALBUMIN 3.8 gm/dL (3.7-5.3); ALKALINE PHOSPHATASE 237 U/L (34-104); ANION GAP 15.9 (7.0-16.0); BILIRUBIN,TOTAL 1.4 mg/dL (0.3-1.0); BUN - UREA NITROGEN 22 mg/dL (7-25); CALCIUM SERUM 9.8 mg/dL (8.6-10.3); CARBON DIOXIDE 21.8 mEq/L (21.0-31.0); CHLORIDE 112 mEq/L (98-107); CHOLESTEROL 192 mg/dL (<200); CREATININE - SERUM 1.4 mg/dL (0.6-1.2); GFR AFRICAN-AMERICAN 52.8 ml/min (>90); GFR NON AFRICAN-AMERICAN 43.6 ml/min; GLUCOSE 85 mg/dL (70-105); HDL -HIGH DENSITY LIPOPROTEIN 63 mg/dL (23-92); POTASSIUM SERUM 3.7 mEq/L (3.5-5.1); SGOT 188 U/L (13-39); SGPT/ALT 304 U/L (7-52); SODIUM SERUM 146 mEq/L (136-145); TOTAL PROTEIN,SERUM 7.4 gm/dL (6.0-8.3); TRIGLYCERIDES 63 mg/dL (<150)
[2018-03-06 16:52] LABS: ACETAMINOPHEN < 10.0 ug/mL (10.0-30.0); SALICYLATES (ASPIRIN) < 25.0 mg/L (30.0-100.0)
[2018-03-06 17:27] LABS: URINE MICROSCOPIC INDICATED? YES; URINE SOURCE CLEAN C
[2018-03-06 17:35] LABS: URINE BILIRUBIN NEGATIVE (NEGATIVE); URINE BLOOD LARGE (NEGATIVE); URINE GLUCOSE (UA) NEGATIVE (NEGATIVE); URINE KETONE 15 mg/dL (NEGATIVE); URINE LEUKOCYTE ESTERASE NEGATIVE (NEGATIVE); URINE NITRATE NEGATIVE (NEGATIVE); URINE PH 5.5 (4.6 - 8.0); URINE PROTEIN 100 mg/dL (NEGATIVE); URINE UROBILINOGEN 0.2 E.U./dL (0.2 - 1.0)
[2018-03-06 17:39] LABS: URINE CLARITY HAZY (CLEAR); URINE COLOR YELLOW
[2018-03-06 17:42] LABS: URINE BACTERIA OCCASIONAL /hpf (NONE SEEN); URINE EPITHELIAL CELLS OCCASIONAL /lpf (FEW); URINE RBC 25-50 /hpf (0-5); URINE WBC 0-2 /hpf (0-5)
[2018-03-06 17:46] LABS: AMPHETAMINE URINE NEGATIVE (NEGATIVE); BARBITURATES URINE NEGATIVE (NEGATIVE); BENZODIAZEPINES QUAL URINE NEGATIVE (NEGATIVE); CANNABINOID THC NEGATIVE (NEGATIVE); COCAINE METABOLITE QUAL URINE NEGATIVE (NEGATIVE); METHADONE URINE NEGATIVE (NEGATIVE); METHAMPHETAMINES QUAL URINE NEGATIVE (NEGATIVE); OPIATES (MORPHINE) QUAL. URINE NEGATIVE (NEGATIVE); PHENCYCLIDINE (PCP) URINE NEGATIVE (NEGATIVE); TRICYCLICS (TCA) QUAL. URINE NEGATIVE (NEGATIVE)
== END 2018-03-06 20:35 | disposition left against medical advice (07) ==
LOC: ER 15:21
DX: G47.00 Insomnia, unspecified (principal); F32.9 Major depressive disorder, single episode, unspecified; F29 Unspecified psychosis not due to a substance or known physiological condition; F20.9 Schizophrenia, unspecified; I10 Essential (primary) hypertension; Z91.048 Other nonmedicinal substance allergy status
CPT/HCPCS: 36415-UA; 80053-TC; 80061-TC; 80307; 80320-TC; 80329-TC; 81001-TC; 83036-90; 84443-TC; 84484-TC; 84703-TC; 85025-TC; 86592-TC; 93005